=== PATIENT | male | born 1965 | race Hispanic/Latino ===

== ENCOUNTER 2016-07-04 23:03 | Observation (INO) | payer OTHER ==
[2016-07-04 23:11] VITALS: BMI 24.9
--- NOTE | 2016-07-04 23:21 | ED PDOC ---
Arrival/HPI - General Chief Complaint: Shortness Of Breath Time Seen by Provider: 07/04/16 23:05 Historian: Patient - History of Present Illness Narrative History of Present Illness (Text): 07/04/16 23:19 Cristian Donovan is a 51 year old male, whose past medical history includes hypertension, hyperlipidemia, and hypothyroidism, who presents to the Emergency department complaining of slurred speech. Patient states he was sitting at a bar prior to arrival and reports after standing up he felt "weird" with slurred speech. Patient also notes some shortness of breath and states he feels better currently. Patient reports he had 3-4 beers tonight. Patient denies any headache, dizziness, vision changes, focal neurological deficits, weakness/ numbness, fever, chills, chest pain, nausea, vomiting, diarrhea, urinary symptoms, back pain, neck pain, or any other complaints. PMD: Dr. Kandis Colón Time/Duration: Prior to Arrival Symptom Onset: Sudden Symptom Course: Improving Activities at Onset: Light Context: Sitting, Other (Bar) Past Medical History - Provider Review Nursing Documentation Reviewed: Yes - Cardiac Hx Hypertension: Yes - Pulmonary Hx Respiratory Disorders: No - Neurological Hx Neurological Disorder: No - HEENT Hx HEENT Disorder: No - Renal Hx Renal Disorder: No - Integumentary Hx Dermatological Disorder: No - Musculoskeletal/Rheumatological Hx Musculoskeletal Disorders: No - Gastrointestinal Hx Gastrointestinal Disorders: No - Genitourinary/Gynecological Hx Genitourinary Disorders: No - Psychiatric Hx Psychophysiologic Disorder: No Hx Substance Use: No Family/Social History - Physician Review Nursing Documentation Reviewed: Yes Family/Social History: No Known Family HX Smoking Status: Cigars Hx Alcohol Use: No Frequency of alcohol use: Socially Hx Substance Use: No Allergies/Home Meds Allergies/Adverse Reactions: Allergies No Known Allergies Allergy (Verified 07/04/16 23:20) Review of Systems - Physician Review All systems were reviewed & negative as marked: Yes - Review of Systems Constitutional: Normal. absent: Fevers Eyes: Normal ENT: Normal Respiratory: SOB. absent: Cough Cardiovascular: Normal. absent: Chest Pain Gastrointestinal: Normal. absent: Abdominal Pain, Diarrhea, Nausea, Vomiting Genitourinary Male: Normal. absent: Dysuria, Frequency, Hematuria, Urinary Output Changes Musculoskeletal: Normal. absent: Back Pain, Neck Pain Skin: Normal. absent: Rash Neurological: Speech Changes (+slurred speech). absent: Dizziness Endocrine: Normal Hemo/Lymphatic: Normal Psychiatric: Normal Physical Exam Vital Signs Reviewed: Yes Vital Signs Temp Pulse Resp BP Pulse Ox 07/05/16 04:00 98.2 F 93 H 18 125/72 96 07/05/16 03:53 92 H 16 131/73 98 07/05/16 02:23 102 H 16 132/72 95 07/05/16 02:12 101 H 16 96 07/05/16 00:15 108 H 16 97 Temperature: Afebrile Blood Pressure: Normal Pulse: Regular Respiratory Rate: Normal Appearance: Positive for: Well-Appearing, Non-Toxic, Comfortable Pain Distress: None Mental Status: Positive for: Alert and Oriented X 3 - Systems Exam Head: Present: Atraumatic, Normocephalic Pupils: Present: PERRL Extroacular Muscles: Present: EOMI Conjunctiva: Present: Normal Mouth: Present: Moist Mucous Membranes Neck: Present: Normal Range of Motion Respiratory/Chest: Present: Clear to Auscultation, Good Air Exchange. No: Respiratory Distress, Accessory Muscle Use Cardiovascular: Present: Regular Rate and Rhythm, Normal S1, S2. No: Murmurs Abdomen: Present: Normal Bowel Sounds. No: Tenderness, Distention, Peritoneal Signs Back: Present: Normal Inspection Upper Extremity: Present: Normal Inspection. No: Cyanosis, Edema Lower Extremity: Present: Normal Inspection. No: Edema Neurological: Present: GCS=15, CN II-XII Intact, Speech Normal Skin: Present: Warm, Dry, Normal Color. No: Rashes Psychiatric: Present: Alert, Oriented x 3, Normal Insight, Normal Concentration Medical Decision Making ED Course and Treatment: 07/04/16 23:20 Impression: 51 year old male complaining of slurred speech. Pt also with some shortness of breath. Differential Diagnosis include but are not limited to: TIA vs. pneumonia vs. CHF vs. ACS Plan: -- EKG -- Chest X-ray -- CT Head w/o contrast -- Labs, troponin, BNP, lipid panel, blood type and screen -- Reassess and disposition Progress Notes: 07/04/16 23:14 Reviewed EKG, sinus tachycardia at 112 bpm[address] Non-specific ST/T wave changes. 07/05/16 01:30 Reviewed radiology, Chest X-ray shows no active disease. CT Head shows: No acute intracranial hemorrhage, or suspicious mass effect. Acute infarction may be CT occult within first 24 hours. If a focal deficit persists, consider followup CT or MRI for further evaluation. 07/05/16 02:[address] Peng, who is aware and agrees with plan. Accepts pt in to her service. Pt will go to Telemetry observation for TIA. Requests Dr. Proctor on consult. Pt is in no acute distress. Discussed results and hospital observation plan with pt, who is aware and verbalizes understanding. 07/05/16 06:52 - Lab Interpretations Lab Results: 07/04/16 23:43 07/04/16 23:43 Lab Results 07/05/16 01:35: D-Dimer, Quantitative 0.34 07/05/16 00:29: POC Glucose (mg/dL) 79 07/04/16 23:43: WBC 9.7, RBC 4.56, Hgb 15.1, Hct 42.5, MCV 93.2, MCH 33.1, MCHC 35.5, RDW 14.3, Plt Count 290, MPV 10.0, Gran % 49.4 L, Lymph % (Auto) 36.3 H, [place] % (Auto) 11.4 H, Eos % (Auto) 2.5, Baso % (Auto) 0.4, Gran # 4.81, Lymph # 3.5 H, [place] # 1.1 H, Eos # 0.2, Baso # 0.04, PT 10.4, INR 0.96, APTT 26.3, Sodium 137, Potassium 4.4, Chloride 99, Carbon Dioxide 26, Anion Gap 16, BUN 18 , Creatinine 0.8, Est GFR ( Amer) > 60, Est GFR (Non-Af Amer) > 60, Random Glucose 96, Calcium 9.9, Total Bilirubin 0.5, AST 33, ALT 43, Alkaline Phosphatase 62, Troponin I < 0.01, NT-Pro-B Natriuret Pep 29.6, Total Protein 7.9, Albumin 4.3, Globulin 3.6, Albumin/Globulin Ratio 1.2, Triglycerides 197 H , Cholesterol 125 L, LDL Cholesterol Direct 58, HDL Cholesterol 38, Alcohol, Quantitative 99 H, Blood Type A POSITIVE, Antibody Screen Negative, BBK History Checked No verified bt I have reviewed the lab results: Yes - RAD Interpretation Narrative RAD Interpretations (Text): Chest X-ray shows no active disease. CT Head shows: Brain: No acute intracranial hemorrhage. No significant white matter disease. No edema. Multiple 1 and 2 mm calcifications are identified within the left cerebral hemisphere. Ventricles: No significant ventriculomegaly. Bones: No acute displaced fracture. Sinuses: Unremarkable as visualized. No acute sinusitis. Mastoid air cells: Unremarkable as visualized. No mastoid effusion. IMPRESSION: No acute intracranial hemorrhage, or suspicious mass effect. Acute infarction may be CT occult within first 24 hours. If a focal deficit persists, consider followup CT or MRI for further evaluation. Radiology Orders: 07/04/16 23:23 CHEST TWO VIEWS (PA/LAT) [RAD] Stat 07/04/16 23:24 HEAD W/O CONTRAST [CT] Stat Cell Stripper Final: ED Physician, Radiologist - EKG Interpretation EKG Interpretation (Text): EKG: Ordered, reviewed, and independently interpreted the EKG. Rate : 112 BPM Rhythm : Sinus tachycardia Interpretation : Non-specific ST/T wave changes. Comparison : No previous EKG for comparison. Interpreted by ED Physician: Yes Type: 12 lead EKG - Medication Orders Current Medication Orders: Discontinued Medications Aspirin (Ecotrin) 325 mg PO STAT STA Stop: 07/05/16 02:20 Last Admin: 07/05/16 03:46 Dose: 325 MG NIHSS Scale ([place]) Time Performed: 23:19 - How Severe is the [place] Baseline Level of Consciousness: 0=Alert LOC to Questions: 0=Both comments correct LOC to commands: 0=Obeys both correctly Best Gaze: 0=Normal Visual: 0=No visual loss Facial: 0=Normal Motor Arm - Left: 0=No drift Motor Arm - Right: 0=No drift Motor Leg - Left: 0=No drift Motor Leg - Right: 0=No drift Limb Ataxia: 0=Absent Sensory: 0=Normal Best Language: 0=No aphasia Dysarthia: 0=Normal articulation Extinction & Inattention (Neglect): 0=Normal, no object Score: 0 Risk Level: No Stroke Risk rTPA Inclusion/Exclusion - Refusal of Treatment Patient Refused Treatment: No - Inclusion Criteria for Altepase Patient is 18 years or Older: Yes The Clinical Diagnosis of Ischemic Stroke That is Causing a Potentially Disabling Neurological Deficit: No Time of Onset is Well Established to be Less Than 270 Minute Before Treatment Would Begin: Yes Risk/Benefit Discussed With Patient/Family Member Present: Yes - Exclusion Criteria for Altepase Uncontrolled Hypertension at Time of Treatment (Systolic BP above 185 or Diastolic BP above 110 mmHg): No Active Internal Bleeding: No Known Bleeding Diathesis Including but Not Limited to: Platelets Below 100,000/ mm,PTT Above 40 sec After Heparin Use, Current Use of Oral Anitcoagulant With INR Greater Than 1.7 or PT Greater Than 15 secs: No Evidence of an Intracranial Hemorrhage: No Evidence of Major Acute Infarct With Signs Greater Than 1/3 MCA Territory: No Suspicion of Subarachnoid Hemorrhage on Pretreatment Evaluation Even if CT Head Negative For Hemorrhage: No - Warning to TPA With Conditions Following Conditions Weighed Against Anticipated Benefit: Yes Condition: Stroke Serevity Too Mild, Rapid Improvement - Scribe Statement The provider has reviewed the documentation as recorded by the Ethel Herrera Provider Attestation: All medical record entries made by the Ethel were at my direction and personally dictated by me. I have reviewed the chart and agree that the record accurately reflects my personal performance of the history, physical exam, medical decision making, and the department course for this patient. I have also personally directed, reviewed, and agree with the discharge instructions and disposition. Disposition/Present on Arrival - Present on Arrival Any Indicators Present on Arrival: No History of DVT/PE: No History of Uncontrolled Diabetes: No Urinary Catheter: No History of Decub. Ulcer: No History Surgical Site Infection Following: None - Disposition Have Diagnosis and Disposition been Completed?: Yes Diagnosis: Transient cerebral ischemia Disposition: HOSPITALIZED Disposition Time: 02:20 Condition: GOOD
[2016-07-04 23:55] LABS: ADD MANUAL DIFF? NO
[2016-07-05 00:03] LABS: BASO # 0.04 K/mm3 (0.0-2.0); BASO % 0.4 % (0.0-3.0); EOS # 0.2 (0.0-0.7); EOS % 2.5 % (1.5-5.0); GRAN # 4.81 (1.4-6.5); GRAN % 49.4 % (50.0-68.0); HEMATOCRIT 42.5 % (42.0-52.0); LYMPH # 3.5 (1.2-3.4); LYMPH % 36.3 % (22.0-35.0); MEAN CELL VOLUME 93.2 fL (80.0-105.0); MEAN CORPUSCULAR HEMOGLOBIN 33.1 pg (25.0-35.0); MEAN CORPUSCULAR HGB CONC 35.5 g/dl (31.0-37.0); MONO # 1.1 (0.1-0.6); MONO % 11.4 % (1.0-6.0); PLATELET COUNT 290 10^3/uL (120.0-450.0); RED CELL DISTRIBUTION WIDTH 14.3 % (11.5-14.5); WHITE BLOOD COUNT 9.7 10^3/ul (4.5-11.0)
[2016-07-05 00:10] LABS: INR 0.96 (0.93-1.08); PARTIAL THROMBOPLASTIN TIME 26.3 Seconds (23.7-30.8)
[2016-07-05 00:13] LABS: ALB/GLOB RATIO 1.2 (1.1-1.8); ALKALINE PHOSPHATASE 62 U/L (38-133); ALT/SGPT 43 U/L (7-56); AST/SGOT 33 U/L (15-59); BILIRUBIN,TOTAL 0.5 mg/dL (0.2-1.3); BLOOD UREA NITROGEN 18 mg/dL (7-21); CALCIUM 9.9 mg/dL (8.4-10.5); CARBON DIOXIDE 26 mmol/L (21-33); CHLORIDE 99 mmol/L (98-107); CHOLESTEROL 125 mg/dL (130-200); GFR AFRICAN-AMERICAN > 60; GLUCOSE,RANDOM 96 mg/dL (70-110); POTASSIUM 4.4 mmol/L (3.6-5.0); SODIUM 137 mmol/L (132-148); TOTAL PROTEIN 7.9 g/dL (5.8-8.3)
[2016-07-05 00:36] LABS: TROPONIN I < 0.01 ng/mL
--- NOTE | 2016-07-05 01:30 | CT ---
EXAM: CT Head Without Intravenous Contrast CLINICAL HISTORY: 51 years old, male; Signs and symptoms; Dizziness; Additional info: Slurred speech TECHNIQUE: Axial computed tomography images of the head/brain without intravenous contrast. This CT exam was performed using one or more of the following dose reduction techniques: automated exposure control, adjustment of the mA and/or kV according to patient size, and/or use of iterative reconstruction technique. COMPARISON: No relevant prior studies available. FINDINGS: Brain: No acute intracranial hemorrhage. No significant white matter disease. No edema. Multiple 1 and 2 mm calcifications are identified within the left cerebral hemisphere. Ventricles: No significant ventriculomegaly. Bones: No acute displaced fracture. Sinuses: Unremarkable as visualized. No acute sinusitis. Mastoid air cells: Unremarkable as visualized. No mastoid effusion. IMPRESSION: No acute intracranial hemorrhage, or suspicious mass effect. Acute infarction may be CT occult within first 24 hours. If a focal deficit persists, consider followup CT or MRI for further evaluation.
[2016-07-05] MEDS ORDERED: Aspirin 325 mg EC Tablets PO STA (02:19)
[2016-07-05 05:16] VITALS: O2SAT 96
[2016-07-05 06:30] VITALS: RESP 20
--- NOTE | 2016-07-05 08:20 | RAD ---
HISTORY: slurred speech COMPARISON: No prior. TECHNIQUE: Chest PA and lateral FINDINGS: LUNGS: No active pulmonary disease. PLEURA: No significant pleural effusion identified. No pneumothorax apparent. CARDIOVASCULAR: Normal. OSSEOUS STRUCTURES: No significant abnormalities. VISUALIZED UPPER ABDOMEN: Normal. OTHER FINDINGS: None. IMPRESSION: No active disease.
[2016-07-05] MEDS ORDERED: Levothyroxine 125 MCG TAB PO SCH (11:15)
--- NOTE | 2016-07-05 11:45 | HP ---
HISTORY OF PRESENT ILLNESS: The patient is a 51-year-old. He states he was in a bar with his son wa tching a football game and he had a couple of beers. When he got up, he felt weird. He had slurred speech. He was unable to udder words. Denies any headache. No history of trauma, no fall, no loss of consciousness. So son brought him to Emergency Room for further evaluation. Denies any fever or chills. No nausea, vomiting, no diarrhea. PAST MEDICAL HISTORY: Significant for: 1. Hypertension. 2. Hyperlipidemia. 3. Hypothyroidism. ALLERGIES: Not allergic to any medications. MEDICATIONS AT HOME: He is on Zocor 80 mg daily, Lotrel 5/10 mg daily, [place] thyroid 120 mcg daily. SOCIAL HISTORY: Used to smoke cigar. Also drinks beer 4-5 beers in a week and more on the weekends. REVIEW OF SYSTEMS: Complained of some neck discomfort here and there with radiation to the left arm and off and on tingling, but currently he has no symptoms. PAST SURGICAL HISTORY: Significant for right little toe skin grafts many, many years ago. PHYSICAL EXAMINATION: GENERAL: He is awake and alert, communicative. Fully cognitive, communicative, answers appropriatel y. VITAL SIGNS: He is afebrile, pulse 93, respirations 20, blood pressure 125/72. LUNGS: Bilateral fair airflow, no rhonchi or crackle. HEART: S1, S2 audible. ABDOMEN: Soft, nontender, no rebound, no guarding. NEUROLOGIC: The patient is awake and alert, communicative, bilateral motor and sensory intact. Spee ch is normal. Gait is normal. LABORATORY DATA: WBC is 9.7, hemoglobin 15, hematocrit 42, platelet 290. PT 10.4, INR 0.96, PTT 26. 3. Chemistry: Sodium 137, potassium 4.4, chloride 99, CO2 26, BUN 18, creatinine 0.8, blood sugar o f 79. LFTs are within normal limits. LDL is 58, total cholesterol 125, triglycerides 197, HDL is 37 . Alcohol level is 99. He had CT scan of the head done that is unremarkable. Carotid Doppler has b een ordered and is pending. X-ray chest is unremarkable. ASSESSMENT: Questionable transient ischemic attack with history of slurred speech, completely resolv ed, could be a combination of alcohol consumption and a sudden increase in blood pressure. PLAN: We will restart patient on his regular medication, get carotid Dopplers. The neurologist's in put awaiting. After he is evaluated and is cleared by neurology, will be discharged home later on to day. Benita Peng MD cc: [phone] TT: 07/05/2016 11:44:03 tn
[2016-07-05 12:13] VITALS: BP 115/78; TEMP 98.7
--- NOTE | 2016-07-05 14:59 | CARD ---
APPROVED REPORT EKG Measurement Heart [id number] <Conclusion> Sinus tachycardia Left anterior fascicular block Abnormal ECG
[2016-07-05 15:31] VITALS: PULSE 86
--- NOTE | 2016-07-05 15:42 | CON ---
DATE: 07/05/2016 CHIEF COMPLAINT: Difficulty getting out words. HISTORY OF PRESENT ILLNESS: This is a 51-year-old man with history of hypertension, hyperlipidemia, hypothyroidism, who was at a bar with his son drinking, having a couple of beers, felt some numbness of his face and some difficulty getting out words and mild slurred speech, but no headache, no focal weakness in the extremities or paresthesias. No history of trauma, no loss of consciousness or fall. CT head showed no acute intracranial abnormality. I saw him while he was getting a carotid Doppler which showed about 39% proximal ICA stenosis, more on the left than the right, but he does not take an aspirin daily. He dropped a lot of weight by dieting recently. Blood pressures are stable. Neur o exam is nonfocal. PAST MEDICAL HISTORY: Hypertension, hyperlipidemia, hypothyroidism. ALLERGIES: No known drug allergies. MEDICATIONS: Zocor, Lotrel, [place] thyroid. SOCIAL HISTORY: He used to smoke cigars, drinks about 4-5 beers in a week, more on weekends. REVIEW OF SYSTEMS: A 14-point review of systems is negative except for the HPI. FAMILY HISTORY: Noncontributory. PHYSICAL EXAMINATION: VITAL SIGNS: Temperature 98.7, pulse rate 76, blood pressure 150/78, respiratory rate of 20, oxygen saturation 96% on room air. GENERAL: The patient is sitting up in bed in no acute distress. HEENT: Atraumatic, normocephalic. PERRLA. Extraocular muscles intact. NECK: Supple, no JVD, no adenopathy noted. LUNGS: Clear to auscultation. No adventitious sounds. HEART: S1, S2, normal rate and rhythm. No murmurs, rubs, or gallops. ABDOMEN: Soft, nontender, nondistended. Bowel sounds are present. EXTREMITIES: No clubbing, no cyanosis. Peripheral pulses 2+ felt bilaterally. NEUROLOGIC: The patient is alert, oriented to person, place, month and year. Speech is fluent, with out any errors. Cranial nerves II through XII are intact. MOTOR: Moves all extremities equally. Toes downgoing bilaterally, no pronator drift seen. SENSORY: Light touch, pinprick, proprioception, vibration intact. DTRs 2+ throughout. COORDINATION: [id number] intact. GAIT: Deferred for now. LABORATORIES: Sodium is 137, potassium 4.4, chloride 199, carbon dioxide 26, BUN of 18, creatinine 0 .8. Random glucose of 79. Alcohol level is 99, triglycerides 197, HDL is 37, LDL is 58, total [place] sterol is 125. Carotid Doppler preliminary result shows about 39% proximal ICA stenosis, more on the left than the right. Actually shows unremarkable. ASSESSMENT AND PLAN: This is a 51-year-old man with history of hypertension, hyperlipidemia, hypothy roidism, who was having a couple of beers watching a football game with his son when he had transient slurred speech and some numbness of his face, but no focal weakness. He had alcohol 99. Currently, his neuro exam is nonfocal. CT head showed no acute intracranial abnormalities. At this time, his presenting symptoms are likely secondary to a combination of alcohol consumption with maybe a slight drop in his blood pressure causing neurologic symptoms versus a questionable transient ischemic attac k. At this time, I recommend: 1. Aspirin 81 mg and Lipitor 40 mg p.o. daily for stroke prevention. 2. Continue with levothyroxine 125 mcg p.o. daily for his hypothyroidism. 3. Heart healthy diet and can be discharged home and follow up in the clinic. Once again, thank you for this consult. Arnaldo Proctor MD cc: [phone] TT: 07/05/2016 15:41:29 Confirmation # [id number] Dictation # [id number] rory
--- NOTE | 2016-07-06 14:25 | US ---
PROCEDURE: Bilateral carotid artery duplex ultrasound HISTORY: Carotid stenosis TIA. PHYSICIAN(S): Nico Rodriguez MD. TECHNIQUE: Duplex sonography and color-flow Doppler were used to evaluate the carotid bifurcations and limited segments of the vertebral arteries bilaterally. FINDINGS: There is mild to moderate focal irregular heterogeneous echogenic plaque noted at the carotid bifurcations bilaterally. The peak systolic velocity in the proximal right internal carotid artery is 118 cm/sec. This corresponds to a 40-59 percent proximal right ICA stenosis. Normal systolic velocities are noted in the proximal right external carotid artery. There is antegrade flow in the dominant right vertebral artery. The peak systolic velocity in the proximal left internal carotid artery is 126 cm/sec. This corresponds to a 40-59 percent proximal left ICA stenosis. Normal systolic velocities are noted in the proximal left external carotid artery. There is antegrade flow in the small left vertebral artery. IMPRESSION: 1. Bilateral 40-59 percent proximal ICA stenoses. 2. Antegrade flow in both vertebral arteries.
== END 2016-07-05 15:57 | disposition home or self-care (01) ==
LOC: ED 23:03 → ERH 07-05 02:39 → 2RNO 07-05 04:17
PROVIDERS: ADMIT Internal Medicine; ATTEND Internal Medicine
DX: G45.9 Transient cerebral ischemic attack, unspecified (principal); I10 Essential (primary) hypertension; E78.5 Hyperlipidemia, unspecified; E03.9 Hypothyroidism, unspecified; I65.23 Occlusion and stenosis of bilateral carotid arteries; Z79.899 Other long term (current) drug therapy; R00.0 Tachycardia, unspecified; Z87.891 Personal history of nicotine dependence
CPT/HCPCS: 70450; 71020; 80053; 80061; 80320; 82948; 83036; 83880; 84484; 85025; 85378; 85610; 85730; 86850; 86900; 93005; 93880; 99285; G0378

== ENCOUNTER 2017-03-10 16:47 | Emergency (ER) | payer OTHER ==
[2017-03-10] MEDS ORDERED: Etomidate 20 mg/10ml Inj IV ONE (16:53)
[2017-03-10 17:09] VITALS: BMI 22.4
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
[2017-03-10 17:25] VITALS: RESP 18; TEMP 98.1; O2SAT 96
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
[2017-03-10 18:55] VITALS: PULSE 98
[2017-03-10 18:56] VITALS: BP 140/62
== END 2017-03-10 18:51 | disposition home or self-care (01) ==
LOC: ED 16:47
DX: M54.5 Low back pain (principal); I10 Essential (primary) hypertension; E03.9 Hypothyroidism, unspecified